=== PATIENT | female | born 1965 | race Caucasian/White ===

== ENCOUNTER 2018-04-20 16:55 | Emergency (ER) | payer BC, MEDICAID ==
[2018-04-20 18:36] VITALS: BP 123/76
--- NOTE | 2018-04-20 18:50 | UC ---
Minor Trauma HPI - HPI Summary HPI Summary: patient was playing with her neices and nephews 2 days ago--tripped and fell landing on left side of her chest---left breast and ches twall painful . - History of Current Complaint Chief Complaint: UCGeneralIllness Stated Complaint: LEFT BREAST PAIN S/P FALL Time Seen by Provider: 04/20/18 18:42 Hx Obtained From: Patient ?: No Onset/Duration: Sudden Onset, Lasting Days - 2 Onset Of Pain: Immediate Pain Intensity: 4 Pain Scale Used: 0-10 Numeric Mechanism Of Injury: Fall From A Standing Position Aggravating Factor(s): Movement Alleviating Factor(s): Nothing - Allergies/Home Medications Allergies/Adverse Reactions: Allergies Allergy/AdvReac Type Severity Reaction Status Date / Time acetaminophen [From Percocet] AdvReac GI Upset Verified 04/20/18 18:36 oxycodone [From Percocet] AdvReac GI Upset Verified 04/20/18 18:36 Home Medications: Home Medications Acetaminophen [Acetaminophen Extra Strength] 1,000 mg PO ONCE 04/20/18 [History Confirmed 04/20/18] PMH/Surg Hx/FS Hx/Imm Hx Previously Healthy: Yes - Surgical History Surgical History: Yes Surgery Procedure, Year, and Place: hysterectomy. gallbladder - Family History Known Family History: Positive: None - Social History Occupation: Employed Full-time Lives: With Family Alcohol Use: Occasionally Substance Use Type: None Smoking Status (MU): Never Smoked Tobacco Review of Systems Constitutional: Negative Skin: Negative Eyes: Negative ENT: Negative Respiratory: Negative Cardiovascular: Negative Gastrointestinal: Negative Genitourinary: Negative Motor: Negative Neurovascular: Negative Musculoskeletal: Arthralgia - left chest wall, Myalgia - left breast Neurological: Negative Psychological: Negative Is Patient Immunocompromised?: No All Other Systems Reviewed And Are Negative: Yes Physical Exam Triage Information Reviewed: Yes Appearance: Well-Appearing, No Pain Distress, Obese Vital Signs: Initial Vital Signs Temp 98.3 F 04/20/18 18:31 Pulse 63 04/20/18 18:31 Resp 18 04/20/18 18:31 BP 123/76 04/20/18 18:31 Pulse Ox 100 04/20/18 18:31 Vital Signs Reviewed: Yes Eye Exam: Normal Eyes: Positive: Conjunctiva Clear ENT Exam: Normal ENT: Positive: Normal ENT inspection, Hearing grossly normal. Negative: Trismus , Muffled voice, Hoarse voice Dental Exam: Normal Neck exam: Normal Neck: Positive: Supple, Nontender Respiratory Exam: Normal Respiratory: Positive: Chest non-tender, Lungs clear, Normal breath sounds, No respiratory distress, No accessory muscle use, Other: - Left chest wall pain Cardiovascular Exam: Normal Cardiovascular: Positive: RRR, No Murmur, Pulses Normal, Brisk Capillary Refill Musculoskeletal Exam: Normal Musculoskeletal: Positive: Strength Intact, ROM Intact, No Edema Neurological Exam: Normal Neurological: Positive: Alert, Muscle Tone Normal Psychological Exam: Normal Skin Exam: Normal Diagnostics - Radiology No standard instances Xray Interpretation: No Acute Changes Radiology Interpretation Completed By: ED Physician, Radiologist - Patient Name : CUATE JONES Medical Record#: [id number] Ordering Physician: Sahara Mckenzie NP Acct.#: [id number] : 1965 Age: 52 Sex: F Location: [facility] Exam Date : 04/20/181848 ADM Status: REG ER Order Information: RIBS LT UNI W/PA CH MIN 3 VWS Accession Number: [id number] CPT: 36299 INDICATION: Left rib injury COMPARISON: None TECHNIQUE: Multiple views of the ribs were obtained. FINDINGS: Bones: There is no evidence of acute rib fracture. LUNGS : The lungs are clear. There is no pneumothorax. Pleural spaces: There is no evidence of hemothorax. Other: None IMPRESSION: NO ACUTE RIB FRACTURE. <Electronically signed by Vasyl Garduno MD in OV> 04/20/181936 Dictated By: Vasyl Garduno MD Dictated Date/Time: 04/20/181936 Transcribed Date/Time: 04/20/181935 Copy to: CC:Sahara Mckenzie NP; Remedios Faulkner TECHNICAL TRAINING MANAGER; Esvin Cordero MD Imaging - [facility] Imaging - [place] [facility] [place] [facility] [address] 10 [facility] [address] [place] [phone]) ph [phone]) ([phone]) 1 of 1 Minor Trauma Course/Dx - Course Course Of Treatment: ice ibuprofen off work follow with pcp - Differential Dx/Diagnosis Provider Diagnoses: left chest wall and breast contusion Discharge - Sign-Out/Discharge Documenting (check all that apply): Discharge/Admit/Transfer - Discharge Plan Condition: Stable Disposition: HOME Prescriptions: Ibuprofen TAB* [Motrin TAB* 800 MG] 800 mg PO Q8H #30 tab Patient Education Materials: Rib Contusion (ED) Forms: *Work Release Referrals: Vanessa Barrios [Primary Care Provider] - If Needed - Billing Disposition and Condition Condition: STABLE Disposition: Home
--- NOTE | 2018-04-20 19:41 | RAD ---
INDICATION: Left rib injury COMPARISON: None TECHNIQUE: Multiple views of the ribs were obtained. FINDINGS: Bones: There is no evidence of acute rib fracture. LUNGS: The lungs are clear. There is no pneumothorax. Pleural spaces: There is no evidence of hemothorax. Other: None IMPRESSION: NO ACUTE RIB FRACTURE.
== END 2018-04-20 20:04 | disposition home or self-care (01) ==
LOC: UCCORT 16:55
DX: S20.02XA Contusion of left breast, initial encounter (principal); W01.0XXA Fall on same level from slipping, tripping and stumbling without subsequent striking against object, initial encounter; Y93.89 Activity, other specified; Y92.009 Unspecified place in unspecified non-institutional (private) residence as the place of occurrence of the external cause; Z88.6 Allergy status to analgesic agent; Z88.5 Allergy status to narcotic agent
CPT/HCPCS: 99202; G0463

== ENCOUNTER 2018-10-30 07:02 | Emergency (ER) | payer BC ==
[2018-10-30 07:17] VITALS: BP 140/87
--- NOTE | 2018-10-30 07:24 | UC ---
FLU HPI - HPI Summary HPI Summary: Patient presents to urgent care with 3 days progressive body aches, cough. Feel full with her cough and her chest, fatigue, myalgias. Patient states all she wanted to sleep. Patient's taken Vicks and drink plenty of fluids. Patient states she had a tactile temperature 3 days ago for which she took Tylenol. No other [id number] medications. 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 Patient went to work today and was sent home. Patient denies sick contacts at home states her coworkers are sick. Patient is not immunicompromised. Medications reviewed this visit. - History of Current Complaint Chief Complaint: UCRespiratory Stated Complaint: SINUSES, CHEST CONGESTION, ACHY Hx Obtained From: Patient Pain Intensity: 0 - Allergy/Home Medications Allergies/Adverse Reactions: Allergies Allergy/AdvReac Type Severity Reaction Status Date / Time oxycodone [From Percocet] AdvReac GI Upset Verified 10/30/18 07:14 Home Medications: Home Medications Ibuprofen TAB* [Motrin TAB* 800 MG] 800 mg PO Q8H PRN 10/30/18 [History Confirmed 10/30/18] PMH/Surg Hx/FS Hx/Imm Hx Previously Healthy: Yes - Surgical History Surgical History: Yes Surgery Procedure, Year, and Place: hysterectomy. gallbladder - Family History Known Family History: Positive: Non-Contributory - Social History Occupation: Employed Part-time - special education preschool teacher Lives: With Family Alcohol Use: Occasionally Substance Use Type: None Smoking Status (MU): Never Smoked Tobacco Review of Systems All Other Systems Reviewed And Are Negative: Yes Constitutional: Positive: Fever, Chills, Fatigue ENT: Positive: Sinus Congestion Respiratory: Positive: Cough Is Patient Immunocompromised?: No Physical Exam - Summary Physical Exam Summary: Vital Signs Reviewed: Yes A+Ox3, congested, tired appearing Eyes: Conjunctiva Clear, WILFRID. EOM intact and full ENT: Hearing grossly normal TM x 2 clear, turbinates inflammed and boggy, + PND , mmoist, uvula midline, no exudate, no erythema Neck: Positive: Supple Respiratory: Positive:coarse cough, rhonchi left upper lobe, slight exp wheeze Cardiovascular: RRR nl s1, s2 no m/r CBT <2 sec abd soft + BS nt/nd no guarding, no distension Musculoskeletal Exam: SOLIS x 4 without difficulty Strength Intact, ROM Intact Neurological: Positive: Alert, + sensation throughout Psychological: Positive: Normal Response To Family Skin: Positive: no rash, no ecchymosis Triage Information Reviewed: Yes Vital Signs: Initial Vital Signs Temp 98.6 F 10/30/18 07:14 Pulse 70 10/30/18 07:14 Resp 20 10/30/18 07:14 BP 140/87 10/30/18 07:14 Pulse Ox 99 10/30/18 07:14 Diagnostics - Radiology No standard instances Radiology Interpretation Completed By: Radiologist - Patient Name: CUATE JONES Medical Record#: [id number] Ordering Physician: Melinda Robledo MD Acct.#: [id number] : 1965 Age: 53 Sex: F Location: [facility] Exam Date: 10/30/18730 ADM Status: REG ER Order Information: CHEST PA & LAT 2 VWS Accession Number: [id number] CPT: 32982 HISTORY: cough, fever, left upper ronchi COMPARISONS: None VIEWS: 4: Frontal dual-energy and lateral views of the chest. FINDINGS: CARDIOMEDIASTINAL SILHOUETTE: The cardiomediastinal silhouette is normal. SURJIT: The surjit are normal. PLEURA: The costophrenic angles are sharp. No pleural abnormalities are noted. LUNG PARENCHYMA: The lungs are clear. ABDOMEN: The upper abdomen is clear. There is no subphrenic gas. BONES AND SOFT TISSUES: Mild degenerative changes are noted. OTHER: None. IMPRESSION: NO ACTIVE CARDIOPULMONARY DISEASE. <Electronically signed by Nishant Almeida MD in OV> 10/30/18750 Dictated By: Nishant Almeida MD Dictated Date/Time: 10/30/18750 Transcribed Date/Time: 10/30/18750 Copy to: CC:Remedios BRAY; Melinda Robledo MD Imaging - [facility] Imaging [facility] [address] [place] [address] ph ([phone]) ph ([phone]) ph ([phone]) This report is only to be considered final once signed by the Provider(s) as displayed in the "<Electronically Signed by >" field (s). Absence of a signature indicates the report is in a draft status and still needs to be finalized. In the event this document was created by someone other than the signing Provider, the individual initiating the document will be listed in the "Entered by:" or "Dictated by:" robb. 1 of 1 Re-Evaluation - Re-Evaluation First Eval Re-Evaluation Time: 07:55 Change: Improved Comment: Pt markedly improved following neb. states feels breathing improved. reviewed CXR. Amox. MDI. Pred. OTC med. work note. hydrate. return precaution Flu Course/Dx - Course Course Of Treatment: Patient presents to urgent care with 4 days progressive body aches, tactile temperatures, myalgias, cough, and feeling like there is thick mucus in her chest. Patient states she is very tired and was unable to work yesterday. Patient was sent here from her today. On exam by signs are stable. Patient tired appearing. Patient with rhonchi left upper lobe. We'll check a flu, DuoNeb and chest x-ray. Patient comfortable in agreement with plan. borderline BP - f/u with pcp - Differential Dx/Diagnosis Provider Diagnosis: Acute bronchitis Discharge - Sign-Out/Discharge Documenting (check all that apply): Patient Departure All imaging exams completed and their final reports reviewed: No Studies - Discharge Plan Condition: Stable Disposition: HOME Prescriptions: Albuterol HFA INHALER* [Ventolin HFA Inhaler*] 2 puff INH Q4H PRN #1 mdi PRN Reason: wheeze Amoxicillin PO (*) [Amoxicillin 875 MG (*)] 875 mg PO BID #20 tab predniSONE TAB* [Deltasone TAB*] 50 mg PO DAILY #5 tab Patient Education Materials: Acute Bronchitis (ED) Forms: *Work Release Referrals: Vanessa Barrios [Primary Care Provider] - Additional Instructions: - Stay well hydrated. Drink plenty of non-alcoholic, non-caffinated beverages. - Take antibiotics and prednisone as prescribed -Use your albuterol puffer - 2 puffs every 4 hours for the next 2 days - then as needed - Alternate ibuprofen (Advil, Motrin) 600mg and Tylenol every 3 hours for pain or fever. Take with food. Do NOT take for more than 4-5 days. - These infections are spread by secretions - do NOT share eating or drinking utensils - clean items you share with other people such as cell phones, computer mouse, TV remote, computer tablets,etc. Once you start to feel better, change your toothbrush and your pillowcase. - get plenty of restful sleep - humidify the air in the room where you sleep - boil water, run a hot steam shower, vaporizer, cups of water by heat register - okay to take over the counter decongestant and cough medication - contact your doctor or return with questions or concerns - Billing Disposition and Condition Condition: STABLE Disposition: Home
[2018-10-30] MEDS: Albuterol/Ipratropium NEB.SOL* Albuterol 2.5 MG/Ipratropium 0.5 MG 3 ML INH ONE (07:41)
== END 2018-10-30 08:09 | disposition home or self-care (01) ==
LOC: UCCORT 07:02
DX: J20.9 Acute bronchitis, unspecified (principal); Z88.5 Allergy status to narcotic agent
CPT/HCPCS: 71046; 99212; A9270-GY; G0463

== ENCOUNTER 2019-02-08 07:35 | Emergency (ER) | payer BC ==
[2019-02-08 07:52] VITALS: BP 132/87
[2019-02-08] MEDS ORDERED: Albuterol/Ipratropium NEB.SOL* Albuterol 2.5 MG/Ipratropium 0.5 MG 3 ML INH ONE (08:01)
--- NOTE | 2019-02-08 08:09 | UC ---
FLU HPI - HPI Summary HPI Summary: 53 old female who felt ill yesterday but awakened this morning with flulike symptoms, fever, chills, body aches, dry tight cough, sore throat. She did not get a flu shot in the fall. - History of Current Complaint Chief Complaint: UCRespiratory Stated Complaint: CONGESTION TIRED Time Seen by Provider: 02/08/19 07:57 Hx Obtained From: Patient ?: No Onset/Duration: Gradual Onset Severity Currently: Mild Severity Initially: Moderate Pain Intensity: 8 Associated Signs & Symptoms: Positive: Fever, Myalgia, Cough, Sore Throat, Nasal Congestion, Headache - Risk Factors Influenza Risk Factors: Negative - She works as a non categorical preschool teacher - Allergy/Home Medications Allergies/Adverse Reactions: Allergies Allergy/AdvReac Type Severity Reaction Status Date / Time oxycodone [From Percocet] AdvReac GI Upset Verified 02/08/19 07:44 PMH/Surg Hx/FS Hx/Imm Hx Previously Healthy: Yes - Surgical History Surgical History: Yes Surgery Procedure, Year, and Place: hysterectomy. gallbladder - Family History Known Family History: Positive: None, Non-Contributory - Social History Alcohol Use: Occasionally Substance Use Type: None Smoking Status (MU): Never Smoked Tobacco Review of Systems All Other Systems Reviewed And Are Negative: Yes Constitutional: Positive: Fever, Chills ENT: Positive: Sore Throat, Nasal Discharge, Sinus Congestion Respiratory: Positive: Cough - Dry tight cough Is Patient Immunocompromised?: No Physical Exam Triage Information Reviewed: Yes Appearance: No Pain Distress, Well-Nourished, Ill-Appearing - Mildly ill- appearing Vital Signs: Initial Vital Signs Temp 99.4 F 02/08/19 07:45 Pulse 85 02/08/19 07:45 Resp 17 02/08/19 07:45 BP 132/87 02/08/19 07:45 Pulse Ox 100 02/08/19 07:45 Vital Signs Reviewed: Yes ENT: Positive: Pharynx normal, Nasal congestion, Nasal drainage - Clear nasal coryza, Uvula midline. Negative: Tonsillar swelling, Tonsillar exudate, Trismus , Muffled voice, Hoarse voice, Sinus tenderness Neck exam: Normal Neck: Positive: Supple, Nontender, No Lymphadenopathy Respiratory: Positive: Lungs clear, Normal breath sounds, No respiratory distress, No accessory muscle use - Tight cough with mild wheezing on forced expiration., Wheezing Abdomen Description: Positive: Nontender, No Organomegaly, Soft Bowel Sounds: Positive: Present Flu Course/Dx - Course Course Of Treatment: Duoneb: Following the DuoNeb treatment the patient had clear lungs and was feeling like she was taking about her breath. Rapid strep: Negative Rapid flu: Negative - Differential Dx/Diagnosis Differential Diagnosis/HQI/PQRI: Bronchitis Provider Diagnosis: Bronchitis Discharge - Sign-Out/Discharge Documenting (check all that apply): Patient Departure All imaging exams completed and their final reports reviewed: No Studies - Discharge Plan Condition: Fair Disposition: HOME Prescriptions: Benzonatate CAP* [Tessalon 100 MG CAP*] 100 mg PO TID PRN #21 cap PRN Reason: Cough predniSONE [Prednisone 20 MG TAB] 40 mg PO DAILY 5 Days #10 tablet Patient Education Materials: Acute Bronchitis (ED) Forms: *Work Release Referrals: Vanessa Barrios [Primary Care Provider] - Additional Instructions: Increase fluids, rest, take the prednisone with food. Definite follow up with your primary care provider in 3 or 4 days if no improvement or if worsening symptoms. - Billing Disposition and Condition Condition: FAIR Disposition: Home - Attestation Statements Provider Attestation: I was available for consult. This patient was seen by the ANDREY. The patient was not presented to, seen by, or examined by me. -Wale
[2019-02-08 08:19] LABS: Influenza A Molecular NEGATIVE (Negative); Influenza B Molecular NEGATIVE (Negative)
== END 2019-02-08 08:41 | disposition home or self-care (01) ==
LOC: UCCORT 07:35
DX: J40 Bronchitis, not specified as acute or chronic (principal); Z88.5 Allergy status to narcotic agent
CPT/HCPCS: 87651; 99212; A9270-GY; G0463